=== PATIENT | female | born 1940 | race Caucasian/White ===

== ENCOUNTER 2019-04-23 19:28 | Observation (INO) ==
[2019-04-23 19:57] LABS: Hematocrit 38.9 % (37.0-47.0); Hemoglobin 13.4 gm/dL (12.5-16.0); Mean Cell Volume 89.8 fl (78-100); Mean Corpuscular Hemoglobin 30.9 pg (27-31); Mean Corpuscular Hgb Conc 34.4 g/dl (32-36); Mean Platelet Volume 9.5 fl (8-12.5); Neutrophil # 3.8 K/mm3 (1.3-6.0); Neutrophil % 62.9 % (42-75.0); Platelet Count 215 K/mm3 (150-450); Red Blood Count 4.33 M/mm3 (4.2-5.4); Red Cell Distribution Width 12.2 % (11.5-14.0)
--- NOTE | 2019-04-23 20:11 | ERNOTE ---
Syncope ER HPI Stated Complaint: passed out Time Seen by Provider: 04/23/19 20:01 Source: patient, other Exam Limitations: no limitations Immunizations: IMMUNIZATION HX Immunizations Up to Date Yes History of Influenza Vaccine Yes Hx Pneumococcal Vaccination No Allergies/Adverse Reactions: Allergies No Known Allergies Allergy (Verified 04/23/19 19:45) Home Medications: HOME MEDICATIONS ibuprofen 200 mg tablet 200 mg PO Q4H PRN tab 12/18/17 [Last Taken Unknown] levothyroxine 50 mcg tablet 50 mcg PO DAILY #90 tab 11/20/18 [Last Taken 04/23/19 09:00] risedronate 150 mg tablet 150 mg PO QMONTH #3 tab 11/20/18 [Last Taken 04/12/19] Multivitamin [Multivitamins] 1 ea PO DAILY 04/23/19 [Last Taken 04/23/19 09:00] - History of Present Illness Narrative: Patient was at a friend's house playing cards she states that she got hot broke out into a sweat had some abdominal pressure and then passed out. Friend states she was held up by the people on either side of her so she did not fall. They states she was unconscious for 5 to 10 minutes. When she came around they said she had slurred speech and left-sided facial droop. Facial droop and slurred speech was resolved prior to EMS arriving. Upon arrival at the ER patient is asymptomatic, patient denies any symptoms at this time. Prior Episodes: Present: no prior history Symptoms prior to episode: Present: diaphoresis, light headedness, nausea Activity at time of episode: Present: sitting Character of event: Present: prolonged (minutes), became unresponsive Location of Injury: Present: none Current Symptoms: Present: back to normal Review of Systems - Review of Systems Constitutional: Absent: recent illness, fever, chills EYE: Absent: vision changes ENT: Absent: nose congestion, nasal drainage Respiratory: Absent: shortness of breath, cough Cardiology: Absent: chest pain, palpitations Gastrointestinal/Abdominal: Present: other - abdominal pressure. Absent: nausea, vomiting Genitourinary: Absent: frequency, dysuria Musculoskeletal: Absent: back pain, muscle pain Skin: Absent: rash Neurological: Present: See HPI, dizziness/light-headedness. Absent: numbness, tingling Endocrine: Present: See HPI, excessive sweating Hematologic/Lymphatic: Absent: easy bruising, easy bleeding Medical History (Last Reviewed 04/23/19 @ 20:09 by Mode Jimenes DO) Osteoporosis (Chronic) Onset Date: Unknown Hypothyroidism (Chronic) Onset Date: Unknown Abdominal pain Onset Date: 07/29/12 Anemia Onset Date: Unknown Shoulder pain, left Onset Date: 09/23/14 with left arm radiculopathy Surgical History: Surgical History (Last Reviewed 04/23/19 @ 20:09 by Mode Jimenes DO) History of lumpectomy of right breast Onset Date: ~1992 benign Hx of cataract surgery Onset Date: Unknown 02/17/11-right, 04/18/11-left Hx of tubal ligation Onset Date: ~1976 Hx of colonoscopy [facility]18 [place]-serrated adenoma, hyperplastic polyp. Recheck 5 yrs. Family History: Family History (Last Reviewed 04/23/19 @ 20:10 by Mode Jimenes DO) Brother Heart disease Father , age 72-brain cancer Brain cancer Mother , age 51-multiple sclerosis Multiple sclerosis Sister Scleroderma Raynauds disease Sister Colon cancer dx age 70 Son Cardiac arrest age 33 Diabetes Sister Alive and well 2 sisters Social History: (Last Reviewed 04/23/19 @ 20:10 by Mode Jimenes DO) Social History: Marital status: / household members: none current occupational status: retired Service: No Tobacco: Smoking Status: Never smoker Alcohol: alcohol intake: current Alcohol type: beer alcohol intake frequency: 0-2 drinks per day Substance Use: substance use type: does not use Dietary Habits: caffeine: Yes caffeine comment: 1 pepsi daily Exercise: frequency: daily Personal Safety: victim of physical abuse: No victim of emotional abuse: No Physical Exam - Physical Exam General Appearance: Present: wd/wn, alert, no apparent distress Head Exam: Present: normal inspection, no evidence of injury Eye Exam: Normal inspection: bilateral, PERRL: bilateral, EOMI: bilateral Ears, Nose, Throat: Present: normal ENT inspection, normal pharynx Neck: Present: normal inspection, nontender, supple, full range of motion Respiratory: Present: no respiratory distress, no accessory muscle use, chest nontender, lungs clear Cardiovascular/Chest: Present: regular rate, rhythm, no murmur, normal peripheral pulses Gastrointestinal/Abdominal: Present: normal bowel sounds, nontender, nondistended, soft Extremity Exam: Present: normal inspection, non-tender, normal range of motion, no edema Neurological Exam: Present: alert, oriented, normal mood/affect, no motor/sensory deficits, 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 Results and Orders: Impression: No acute intracranial process. Mild cerebral volume loss. Mild chronic small vessel ischemic disease. Electronically signed by Ana Bailey D.O.. - Vital Signs Patient's Vital Signs:: I have reviewed the patient's vital signs. Vital Signs: Vital Signs 04/23/19 19:35 04/23/19 19:39 Temperature 36.9 C Pulse Rate 76 87 Respiratory Rate 18 Blood Pressure 158/69 H O2 Sat by Pulse Oximetry 98 - EKG EKG #1 EKG: NSR, no ST T wave changes EKG read: Interp. by il - CT/Ultrasound CT/Ultrasound Narrative: CT head without contrast: Impression: No acute intracranial process. Mild cerebral volume loss. Mild chronic small vessel ischemic disease. Electronically signed by Ana Bailey D.O.. - Progress/Reassessment Chief Complaint: Syncopal Episode Progress:: Improved Progress Note-Subjective: 04/23/19 21:[address] Reyes she agrees with observation admit with every 4 neurochecks and MRI to be ordered for tomorrow. Departure Clinical Impression: TIA (transient ischemic attack) Syncope Qualifiers: Syncope type: unspecified Qualified Code(s): R55 - Syncope and collapse - Departure Disposition: Still a patient Condition: Good
[2019-04-23 20:15] LABS: ALT 20 U/L (19-67); AST 22 U/L (0-48); Albumin * 3.9 gm/dl (3.4-5.0); Alkaline Phosphatase * 96 U/L (50-170); BUN/Creatinine Ratio 14.3 (9.0-21.6); Bilirubin, Total 0.3 mg/dL (0.0-1.1); Blood Urea Nitrogen 11 mg/dL (3-23); Ca. Corrected For Albumin 8.3 mg/dL (8.4-10.2); Calcium * 8.5 mg/dL (7.9-10.9); Carbon Dioxide 28.7 mmol/L (24-32.6); Chloride 108 mmol/L (97-106); Glucose * 98 mg/dL (70-110); Potassium 3.7 mmol/L (3.4-4.6); Sodium 143 mmol/L (132-142); Total Protein 6.9 gm/dL (6.2-8.2); Troponin I Less than 0.017 ng/mL (0.00-0.10)
[2019-04-23] MEDS ORDERED: NORMAL SALINE 1,000 ML IV PRN (21:23)
[2019-04-23 21:25] LABS: Prothrombin Time (Patient) 9.9 Seconds (9.1-10.7)
[2019-04-23] MEDS ORDERED: IBUPROFEN 200 MG TABLET PO PRN (21:27)
[2019-04-23] MEDS ORDERED: ASPIRIN 325 MG TABLET.DR PO ONE (22:00)
[2019-04-23] MEDS ORDERED: ROSUVASTATIN CALCIUM 10 MG TABLET PO SCH (22:30)
[2019-04-23] MEDS: LISINOPRIL 10 MG TABLET PO SCH (22:38)
[2019-04-24 06:32] LABS: Hematocrit 38.6 % (37.0-47.0); Hemoglobin 13.2 gm/dL (12.5-16.0); Mean Corpuscular Hemoglobin 30.8 pg (27-31); Mean Corpuscular Hgb Conc 34.2 g/dl (32-36); Red Blood Count 4.29 M/mm3 (4.2-5.4); White Blood Count 6.1 K/mm3 (4.0-10.5)
[2019-04-24 06:33] LABS: Mean Platelet Volume 9.5 fl (8-12.5); Neutrophil # 4.7 K/mm3 (1.3-6.0); Neutrophil % 76.1 % (42-75.0); Platelet Count 218 K/mm3 (150-450)
[2019-04-24 06:36] LABS: Red Cell Distribution Width 12.3 % (11.5-14.0)
[2019-04-24] MEDS ORDERED: LEVOTHYROXINE SODIUM 50 MCG TABLET PO SCH (07:00)
[2019-04-24 07:02] LABS: Albumin * 3.5 gm/dl (3.4-5.0); Anion Gap 10.1 mmol/L (6.8-13.8); BUN/Creatinine Ratio 9.8 (9.0-21.6); Ca. Corrected For Albumin 8.1 mg/dL (8.4-10.2); Carbon Dioxide 26.8 mmol/L (24-32.6); Potassium 3.9 mmol/L (3.4-4.6); Total Protein 6.4 gm/dL (6.2-8.2)
[2019-04-24 07:04] LABS: Bilirubin, Total 0.3 mg/dL (0.0-1.1)
[2019-04-24] MEDS: LISINOPRIL 10 MG TABLET PO SCH (08:07)
[2019-04-24] MEDS ORDERED: LISINOPRIL 10 MG TABLET PO SCH (09:00)
[2019-04-24] MEDS ORDERED: MULTIVITAMINS 1 CAP CAPSULE PO SCH (09:00)
[2019-04-24] MEDS ORDERED: MULTIVITAMIN PO SCH (09:00)
[2019-04-24] MEDS ORDERED: CHOLECALCIFEROL 400 UNIT TABLET PO SCH (09:00)
--- NOTE | 2019-04-24 09:01 | HP ---
Chief Complaint - Chief Complaint Date of Service: 04/24/19 Time of Service: 08:55 Chief Complaint: Syncope versus TIA History of Present Illness: 79-year-old female with past medical history of osteoporosis and hypothyroidism presents to [facility] ER after a syncopal episode. Primary care provider is Dr. Jain. Patient states she was playing cards with her friends, in the office and she felt a couple of hot flashes across her face and followed by nausea and dizziness which resulted in a syncopal episode. Patient reports she is approximately not alert for 5 minutes. The next thing she recalls is when EMS was at the site and calling out her name. Patient was brought to the ER and extensive work-up completed which was largely unremarkable. Vitals patient has been hypertensive and tachycardic. There was concern of possible TIA, CT head completed ruled acute bleed. Patient was admitted into observation for TIA. Started on treatment with high- dose aspirin, statin, and an MRI to follow-up CT. NIHSS 0. On arrival to the floor patient was evaluated. Patient is alert oriented x3. Neurological examinations unremarkable. Patient states she is feeling better in comparison when she arrived in the ER. Denies any symptoms of weakness, dizziness, chest pain or shortness of breath. Discussed management and explained i will complete MRI brain patient and orthostatic vitals to rule out other acute etiologies. Advised patient remaining work-up for cardiovascular risk factors such as imaging of the carotids and echo will be completed outpatient by primary care provider. Patient voices understanding. Medical History (Last Reviewed 04/23/19 @ 21:57 by Nicole More RN) Osteoporosis (Chronic) Onset Date: Unknown Hypothyroidism (Chronic) Onset Date: Unknown Abdominal pain Onset Date: 07/29/12 Anemia Onset Date: Unknown Shoulder pain, left Onset Date: 09/23/14 with left arm radiculopathy Surgical History: Surgical History (Last Reviewed 04/23/19 @ 21:57 by Nicole More RN) History of lumpectomy of right breast Onset Date: ~1992 benign Hx of cataract surgery Onset Date: Unknown 02/17/11-right, 04/18/11-left Hx of tubal ligation Onset Date: ~1976 Hx of colonoscopy Onset Date: 01/16/18 10/31/07-[facility]. 01/16/18 [place]agan-serrated adenoma, hyperplastic polyp. Recheck 5 yrs. Family History: Family History (Last Reviewed 04/23/19 @ 21:58 by Nicole More RN) Brother Heart disease Father , age 72-brain cancer Brain cancer Mother , age 51-multiple sclerosis Multiple sclerosis Sister Raynauds disease Scleroderma Sister Colon cancer dx age 70 Son Diabetes Cardiac arrest age 33 Sister Alive and well 2 sisters Social History: (Last Reviewed 04/23/19 @ 21:58 by Nicole More RN) Social History: Marital status: / household members: none current occupational status: retired Service: No Tobacco: Smoking Status: Never smoker Alcohol: alcohol intake: current Alcohol type: beer alcohol intake frequency: 0-2 drinks per day Substance Use: substance use type: does not use Dietary Habits: caffeine: Yes caffeine comment: 1 pepsi daily Exercise: frequency: daily Personal Safety: victim of physical abuse: No victim of emotional abuse: No Review Of Systems (GEN) - Review of Systems Generalized/Overall Review: Present: Weakness EENTM: Absent: Blurred Vision Respiratory: Absent: Shortness of Breath Cardiac: Absent: Chest Pain Abdominal: Present: Nausea. Absent: Vomiting, Abdominal Pain Neurological: Present: Weakness Immunizations: IMMUNIZATION HX Immunizations Up to Date Yes History of Influenza Vaccine Yes Hx Pneumococcal Vaccination No Allergies/Adverse Reactions: Allergies Allergy/AdvReac Type Severity Reaction Status Date / Time No Known Allergies Allergy Verified 04/23/19 19:45 Home Medications: HOME MEDICATIONS ibuprofen 200 mg tablet 200 mg PO Q4H PRN tab 12/18/17 [Last Taken Unknown] levothyroxine 50 mcg tablet 50 mcg PO DAILY #90 tab 11/20/18 [Last Taken 04/23/19 09:00] risedronate 150 mg tablet 150 mg PO QMONTH #3 tab 11/20/18 [Last Taken 04/12/19] Multivitamin [Multivitamins] 1 ea PO DAILY 04/23/19 [Last Taken 04/23/19 09:00] Exam - Exam Vital Signs: Vital Signs - Last Taken Temp 36.8 C 04/24/19 06:50 Pulse 105 H 04/24/19 08:07 Resp 15 04/24/19 06:50 BP 151/59 H 04/24/19 08:07 Pulse Ox 97 04/24/19 06:50 Constitutional: Present: Alert, Oriented x3, Cooperative, Well developed, Well nourished, No distress ENT Exam: Present: hearing grossly normal Eye Exam: bilateral eye: normal inspection, PERRL, EOMI Neck: Present: non-tender, full range of motion Respiratory: Present: chest non-tender, lungs clear, normal breath sounds, no respiratory distress, no accessory muscle use Cardiovascular/Chest: Present: normal peripheral pulses, regular rate, rhythm, no chest tenderness, no edema, no JVD, no murmur Abdomen: Present: Normal bowel sounds, soft, nontender Extremity: Present: normal range of motion, non-tender, normal inspection, no pedal edema, no calf tenderness, normal capillary refill Skin Exam: Present: normal color, warm/dry 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 Absent: motor weakness, dizzy/light- headedness Appearance: Present: appropriate appearance, appropriate insight Eye contact: Present: cooperative, good eye contact Thoughts: Present: normal thought pattern Diagnostic Studies: Abnormal Lab Results 04/23/19 04/24/19 04/24/19 Range/Units 19:50 06:10 06:10 Neutrophils % 76.1 H (42-75.0) % Lymphocytes % 16.1 L (20-51) % Lymphocytes # 0.98 L (1.5-3.5) k/mm3 Sodium 143 H (132-142) mmol/L Plasma Sodium 143 H (130-142) mmol/L Chloride 108 H 108 H (97-106) mmol/L Calcium Adj for Albumin 8.3 L 8.1 L (8.4-10.2) mg/dL ALT 17 L (19-67) U/L Laboratory Results WBC 6.1 K/mm3 (4.0-10.5) 04/24/19 06:10 RBC 4.29 M/mm3 (4.2-5.4) 04/24/19 06:10 Hgb 13.2 gm/dL (12.5-16.0) 04/24/19 06:10 Hct 38.6 % (37.0-47.0) 04/24/19 06:10 MCV 90.0 fl (78-100) 04/24/19 06:10 MCH 30.8 pg (27-31) 04/24/19 06:10 MCHC 34.2 g/dl (32-36) 04/24/19 06:10 RDW 12.3 % (11.5-14.0) 04/24/19 06:10 Plt Count 218 K/mm3 (150-450) 04/24/19 06:10 MPV 9.5 fl (8-12.5) 04/24/19 06:10 Immature Gran % (Auto) 0.20 % (0.001-0.429) 04/24/19 06:10 Immature Gran # (Auto) 0.01 K/mm3 (0.000-0.0310) 04/24/19 06:10 Neutrophils % 76.1 % (42-75.0) H 04/24/19 06:10 Lymphocytes % 16.1 % (20-51) L 04/24/19 06:10 Monocytes % 6.6 % (0.0-9) 04/24/19 06:10 Eosinophils % 0.7 % (0.0-3.0) 04/24/19 06:10 Basophils % 0.3 % (0.0-1.0) 04/24/19 06:10 Nucleated RBC % 0.0 k/mm3 (0-1) 04/24/19 06:10 Neutrophils # 4.7 K/mm3 (1.3-6.0) 04/24/19 06:10 Lymphocytes # 0.98 k/mm3 (1.5-3.5) L 04/24/19 06:10 Monocytes # 0.4 k/mm3 (0.0-1.0) 04/24/19 06:10 Eosinophils # 0.0 k/mm3 (0.0-0.7) 04/24/19 06:10 Absolute Basophils 0.0 k/mm3 (0.0-0.1) 04/24/19 06:10 PT 9.9 Seconds (9.1-10.7) 04/23/19 19:45 INR (Anticoag Therapy) 1.00 INR (0.92-1.08) 04/23/19 19:45 Sodium 141 mmol/L (132-142) 04/24/19 06:10 Plasma Sodium 141 mmol/L (130-142) 04/24/19 06:10 Potassium 3.9 mmol/L (3.4-4.6) 04/24/19 06:10 Chloride 108 mmol/L (97-106) H 04/24/19 06:10 Carbon Dioxide 26.8 mmol/L (24-32.6) 04/24/19 06:10 Anion Gap 10.1 mmol/L (6.8-13.8) 04/24/19 06:10 BUN 6 mg/dL (3-23) 04/24/19 06:10 Creatinine 0.61 mg/dL (0.4-1.4) 04/24/19 06:10 Est GFR (Non-Af Amer) 101 mL/min (60-130) D 04/24/19 06:10 BUN/Creatinine Ratio 9.8 (9.0-21.6) 04/24/19 06:10 Random Glucose 102 mg/dL (70-110) 04/24/19 06:10 Calcium 8.0 mg/dL (7.9-10.9) 04/24/19 06:10 Calcium Adj for Albumin 8.1 mg/dL (8.4-10.2) L 04/24/19 06:10 Total Bilirubin 0.3 mg/dL (0.0-1.1) 04/24/19 06:10 AST 21 U/L (0-48) 04/24/19 06:10 ALT 17 U/L (19-67) L 04/24/19 06:10 Alkaline Phosphatase 87 U/L (50-170) 04/24/19 06:10 Troponin I Less than 0.017 ng/mL (0.00-0.10) 04/23/19 19:50 Total Protein 6.4 gm/dL (6.2-8.2) 04/24/19 06:10 Albumin 3.5 gm/dl (3.4-5.0) 04/24/19 06:10 Assessment/Plan - Narrative Narrative: - Assessment/Plan (1) TIA (transient ischemic attack) Problem: Acute -NIHSS 0 -ABCD2 =2 low risk but no need for combined anticoagulant -CT of head completed ruled out acute bleed -Neurochecks every 4 hours -Vital signs every 4 hours -Aspirin 325 mg p.o. x1 -Lipitor 20 mg p.o. times -Cardiac work-up unremarkable -MRI to follow in the morning -Echo and ultrasound of carotids to be completed outpatient (2) Syncope Problem: Acute -Orthostatic vitals ordered for morning -Results pending (3) Essential hypertension Problem: Acute -No previous diagnosis of essential hypertension -Started on lisinopril 20 mg, total goal was blood pressure less than 140. -Patient continues to be tachycardic, will add beta-prasanth low-dose. (4) Osteoporosis Problem: Chronic -Continue with home medication as ordered (5) Hypothyroidism Problem: Chronic -Levothyroxine 75 mcg Fluids, electrolytes, nutrition: Due to syncopal episode concern for possible mild dehydration patient given a bolus of normal saline. Patient was n.p.o. till she passed bedside swallow test and heart healthy diet ordered DVT prophylaxis: SCDs whilst on bed CODE STATUS: DO NOT RESUSCITATE / DO NOT INTUBATE Disposition: Pending MRI anticipate patient will be discharged within 24 hours. Cardiac work-up to be completed outpatient of lipid profile ultrasound of the carotids and echo. Schedule appointment with primary care provider for follow-up prior to discharge. Will most likely discharge patient on hypertensive medication. - Assessment/Plan (1) TIA (transient ischemic attack) Problem: Acute (2) Syncope Problem: Acute Qualifiers: Syncope type: unspecified Qualified Code(s): R55 - Syncope and collapse (3) Essential hypertension Problem: Acute (4) Osteoporosis Problem: Chronic (5) Hypothyroidism Problem: Chronic
[2019-04-24] MEDS ORDERED: METOPROLOL SUCCINATE 25 MG TABLET.SA PO SCH (09:15)
--- NOTE | 2019-04-24 09:26 | DS ---
(1) TIA (transient ischemic attack) Problem: Acute (2) Syncope Problem: Acute Qualifiers: Syncope type: unspecified Qualified Code(s): R55 - Syncope and collapse (3) Essential hypertension Problem: Acute (4) Osteoporosis Problem: Chronic (5) Hypothyroidism Problem: Chronic Date of Discharge:: 04/24/19 Description of Stay: 79-year-old female with past medical history of osteoporosis and hypothyroidism admitted to [facility] after a syncopal episode concerning for TIA. Primary care provider is Dr. Jain. Patient states she was playing cards with her friends, and she felt a couple of hot flashes across her face, followed by nausea, dizziness and a syncopal episode. Patient reports she was approximately not alert for 5 minutes. The next thing she recalls is when EMS was at the site and calling out her name. Patient was brought to the ER and extensive work-up completed which was largely unremarkable. Vitals stable with exception of mild hypertension and tachycardia. There was concern of possible TIA, CT head completed ruled out acute bleed. Patient was admitted into observation for TIA. Started on treatment with high- dose aspirin, statin. NIHSS 0. MRI not warranted, no acute changes after 8 hours of observation. Neurochecks unremarkable. Vitals overnight were within normal limits. NIH SS 0 on discharge. Remaining cardiovascular work-up of, lipid panel, A1c, ultrasound of the carotids and echo to be completed outpatient by primary care provider Dr. Jain. Will discharge patient on low-dose metoprolol for essential hypertension. We will schedule an appointment with primary care provider prior to discharge. Patient will be discharged home. Procedures Performed: none Results and Findings: Lab Pending Results 04/23/19 19:45: PT 9.9, INR (Anticoag Therapy) 1.00 04/23/19 19:50: WBC 6.0, RBC 4.33, Hgb 13.4, Hct 38.9, MCV 89.8, MCH 30.9, MCHC 34.4, RDW 12.2, Plt Count 215, MPV 9.5, Immature Gran % (Auto) 0.30, Immature Gran # (Auto) 0.02, Neutrophils % 62.9, Lymphocytes % 25.8, Monocytes % 8.5, Eosinophils % 2.0, Basophils % 0.5, Nucleated RBC % 0.0, Neutrophils # 3.8, Lymphocytes # 1.54, Monocytes # 0.5, Eosinophils # 0.1, Absolute Basophils 0.0 04/23/19 19:50: Sodium 143 H, Plasma Sodium 143 H, Potassium 3.7, Chloride 108 H, Carbon Dioxide 28.7, Anion Gap 10.0, BUN 11, Creatinine 0.77, Est GFR (Non-Af Amer) 77, BUN/Creatinine Ratio 14.3, Random Glucose 98, Calcium 8.5, Calcium Adj for Albumin 8.3 L, Total Bilirubin 0.3, AST 22, ALT 20, Alkaline Phosphatase 96, Troponin I Less than 0.017, Total Protein 6.9, Albumin 3.9 04/24/19 06:10: WBC 6.1, RBC 4.29, Hgb 13.2, Hct 38.6, MCV 90.0, MCH 30.8, MCHC 34.2, RDW 12.3, Plt Count 218, MPV 9.5, Immature Gran % (Auto) 0.20, Immature Gran # (Auto) 0.01, Neutrophils % 76.1 H, Lymphocytes % 16.1 L, Monocytes % 6.6, Eosinophils % 0.7, Basophils % 0.3, Nucleated RBC % 0.0, Neutrophils # 4.7, Lymphocytes # 0.98 L, Monocytes # 0.4, Eosinophils # 0.0, Absolute Basophils 0.0 04/24/19 06:10: Sodium 141, Plasma Sodium 141, Potassium 3.9, Chloride 108 H, Carbon Dioxide 26.8, Anion Gap 10.1, BUN 6, Creatinine 0.61, Est GFR (Non-Af Amer) 101 D, BUN/Creatinine Ratio 9.8, Random Glucose 102, Calcium 8.0, Calcium Adj for Albumin 8.1 L, Total Bilirubin 0.3, AST 21, ALT 17 L, Alkaline Phosphatase 87, Total Protein 6.4, Albumin 3.5 Discharge Location: Home Disposition: Home self-care Condition: Good Discharge Activity: Activity as tolerated Discharge Diet: Low salt Referrals: Thuy Jain MD [Primary Care Provider] - Complete Home Medications List: Complete Home Medication List: ibuprofen 200 mg tablet 200 mg PO Q4H PRN tab 12/18/17 levothyroxine 50 mcg tablet 50 mcg PO DAILY #90 tab 11/20/18 risedronate 150 mg tablet 150 mg PO QMONTH #3 tab 11/20/18 Multivitamin [Multivitamins] 1 ea PO DAILY 04/23/19 Metoprolol Succinate [Toprol Xl] 25 mg PO DAILY #30 tablet.sa 04/24/19
[2019-04-24 10:27] VITALS: BP 139/63
[2019-04-24] MEDS ORDERED: ROSUVASTATIN CALCIUM 10 MG TABLET PO SCH (21:00)
[2019-04-30] MEDS ORDERED: RISEDRONATE SODIUM 150 MG PO SCH (09:00)
== END 2019-04-24 11:00 | disposition home or self-care (01) ==
LOC: MS 19:28 → ER 19:28 → MS 21:22
PROVIDERS: ADMIT Family Medicine; ATTEND Family Medicine
CPT/HCPCS: 36415; 70450; 80053; 84484; 85025; 85610; 93005; 96360; 96361; 99285; G0378